=== PATIENT | female | born 1950 | race Caucasian/White ===

== ENCOUNTER 2022-04-14 12:13 | Outpatient (CLI) | payer MEDICARE, OTHER, SELFPAY ==
[2022-04-14 12:31] VITALS: BP 170/82; PULSE 75; RESP 18; O2SAT 94
[2022-04-14] MEDS: TETRACAINE 0.5% OPHTH 1 DROP EYE-RIGHT ×2 (12:38→12:44)
[2022-04-14] MEDS: BRIMONIDINE TARTRATE 0.2% OPHTH 1 DROP EYE-RIGHT ×2 (12:39→13:50)
--- NOTE | 2022-05-17 07:35 | OP_ITS ---
NAME OF PROCEDURE YAG laser capsulotomy, right eye. PREOP DIAGNOSIS Obscuring lens capsule, right eye. POSTOP DIAGNOSIS Obscuring lens capsule, right eye, repaired. 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 ?She is unable to read her music as she would like. Benson Whipple MD was unable to give her corrective lenses that would give her clear vision. ?For that reason, she elected to proceed with laser capsulotomy?on the right eye. ?I explained the risks, benefits, alternative treatments to her including possible need for exchanging the implant. ?She understands, accepts, and elects to proceed with surgical repair. PROCEDURE After the right pupil was dilated with 1% Mydriacyl, topical anesthetic was applied. ?She was positioned for the YAG laser where after placing a laser lens, a standard cruciform capsulotomy was performed utilizing 37 pulses at 2.2 mJ. ?She was then discharged in good condition, having tolerated the procedure well. ? Condition on discharge was satisfactory.
== END 2022-04-14 13:52 | disposition home or self-care (01) ==
LOC: EYE PRC 12:17
PROVIDERS: PCP Family Medicine; Visit Provider Ophthalmology
DX: H26.9 Unspecified cataract (principal)
CPT/HCPCS: 66821; A9270